=== PATIENT | female | born 1995 | race Caucasian/White ===

== ENCOUNTER → 2016-09-08 | Outpatient (REF) | payer OTHER | LOC: M LAB REF 13:29 | PROVIDERS: ATTEND Internal Medicine Gastroenterology | DX: R10.12 Left upper quadrant pain (principal); R14.0 Abdominal distension (gaseous); R14.1 Gas pain ==

== ENCOUNTER → 2018-01-24 | Outpatient (CLI) | payer OTHER ==
[2018-01-28 08:06] LABS: RUBELLA IgG FOR TORCH EVAL 6.06 index (Immune >0.99); RUBEOLA IgG ANTIBODY >300.0 AU/mL (Immune >29.9)
[2018-01-28 08:06] LABS: HERPES ZOSTER, VARICELLA IgG 1073 index (Immune >165); MUMPS VIRUS IgG ANTIBODY 35.5 AU/mL (Immune >10.9)
== END ==
LOC: M WUC 11:24
DX: Z02.0 Encounter for examination for admission to educational institution (principal)
CPT/HCPCS: 86762

== ENCOUNTER → 2018-07-20 | Outpatient (CLI) | payer OTHER ==
[2018-07-23 14:13] LABS: H PYLORI STOOL ANTIGEN Negative (Negative)
[2018-07-23 14:13] LABS: FATS NEUTRAL Normal (.); FATS TOTAL Normal (.); PANCREATIC ELASTASE STOOL >500 (>200)
== END ==
LOC: M LAB 08:33
DX: R68.81 Early satiety (principal); R10.9 Unspecified abdominal pain; R14.0 Abdominal distension (gaseous); R14.2 Eructation
CPT/HCPCS: 82705

== ENCOUNTER → 2018-08-01 | Outpatient (CLI) | payer OTHER | LOC: M RAD 07:31 | DX: R68.81 Early satiety (principal); R14.0 Abdominal distension (gaseous); R10.9 Unspecified abdominal pain; R14.2 Eructation | CPT/HCPCS: 78264 ==

== ENCOUNTER → 2018-09-15 | Outpatient (REF) | payer OTHER | LOC: M LAB REF 12:21 | PROVIDERS: ATTEND Internal Medicine Gastroenterology | DX: R19.4 Change in bowel habit (principal); R10.9 Unspecified abdominal pain; R14.2 Eructation; R68.81 Early satiety; R14.0 Abdominal distension (gaseous) ==

== ENCOUNTER → 2018-10-24 | Outpatient (CLI) | payer OTHER ==
--- NOTE | 2018-10-24 18:05 | REP ---
Clinical: Constipation. Technique: Single supine view of the abdomen and pelvis. Findings: Moderate to significant fecal stasis and presumed constipation noted. No bowel obstruction. No organomegaly. No free air. No abnormal calcifications. Skeletal structures are intact. Impression: Moderate to significant fecal stasis and presumed constipation. Electronically Signed by Juliocesar Haas MD 10/24/2018 05:56 P
== END ==
LOC: M ADAMS 17:42
PROVIDERS: ATTEND Physician Assistant Medical
DX: K59.00 Constipation, unspecified (principal)